=== PATIENT | female | born 1980 | race Caucasian/White ===

== ENCOUNTER 2019-01-21 10:18 | Emergency (ER) | payer OTHER ==
[2019-01-21] MEDS ORDERED: hydrOXYzine PAMOATE 25 MG CAPSULE (FP) PO ONE (10:34)
--- NOTE | 2019-01-21 10:34 | PDOC ---
History of Present Illness - General Chief Complaint: Psychiatric Stated Complaint: FEELING ANXIOUS Time Seen by Provider: 01/21/19 10:33 - History of Present Illness Initial Comments: Chief complaint: Anxiety History of present illness: Patient complains of feeling very anxious today. She feels she is going to . She has had panic attacks in the past, had been taking anti-anxiety medication but stopped. Time frame is uncertain. Symptoms this time are more severe. There appeared to be no obvious precipitating factors , though her parents think that she is worried about seeing some people she does not like at a family gathering tomorrow. There is no chest pain or shortness of breath, and she denies suicidal or homicidal ideations. She has no primary physician, although she has seemed psychologist recently, she is not forthcoming about the details or time of recent visit. Review of systems: No chest pain, shortness of breath, visual or focal neurologic symptoms, unsteadiness of gait, fever/chills, recent URI, sore throat , cough, abdominal pain, nausea, vomiting, diarrhea. She does admit that she has no appetite and that she has been sleeping poorly. Past medical history: Treated for depression many years ago but never hospitalized. Periodic panic attacks in the past, anxiety. No significant medical or surgical illness according to herself, her family. Social history: Lives with her and 2 children, and according to her parents they have a good relationship. She has been conscientious about taking care of her children and they are in good health. There are no Known conflicts with her , whom her father states is a "good man". Patient denies the use of tobacco alcohol or drugs. This was substantiated by both her brother and parents, who are in attendance today. Family history: Reviewed and noncontributory including early coronary artery disease, metabolic disease including diabetes, cancer, and psychiatric/ neurological disease. Physical exam: Anxious appearing female stating that she feels she is going to . No other specific complaints. Well-developed well-nourished. Limited cooperation. Afebrile, vital signs normal PERRLA 4 mm, fundi benign with sharp disc margins, good central venous pulsations, no hemorrhages or exudates or other funduscopic abnormalities. ENT clear Neck supple without bruit mass or nodes Chest clear CV regular without murmur rub or gallop pulses full and symmetric no JVD or edema no bruits Abdomen benign Neurological C2 to 12 intact. Strength full and symmetric. No focal sensory or motor deficits. Gait stable and unimpaired Impression: Panic attack, anxiety, history of depression, no history of suicidal ideations, homicidal ideations, or attempts to hurt herself or others. Plan: Sedation. Phone call was placed to Dr. Clarke who is on-call for psychiatry. Case was thoroughly discussed. He recommended administration of Ativan and if no improvement will be able to see the patient this evening at 6 PM. Preliminary labs and drug screen are pending. Past History - Past Medical History Allergies/Adverse Reactions: Allergies No Known Allergies Allergy (Verified 01/21/19 10:19) Home Medications: Ambulatory Orders LORazepam [Ativan] 1 mg PO TID #10 tablet MDD 3 01/21/19 Surgical History: Yes: No Surgical History - Social History Smoking History: No Smoking Status: Never smoked Number of Cigarettes Per Day: 0 Cigars Per Day: 0 Alcohol Use: none Drug Use: none Plan - Progress Note Progress Note: 01/21/19 15:09 Patient was considerably more calm after medication. Physical exam remained normal. She did not seem suicidal or in any danger to herself or others. It was arranged with her parents and brother that she should be closely observed until follow-up with psychiatrist. Arrangements were made with to see patient tomorrow. Continue Ativan. Return to ER if condition is worse. - Order(s) Order(s): Orders Medication Instructions Recorded Unobtainable 01/21/19 - Laboratory CBC & Chemistry Diagram: 01/21/19 11:50 01/21/19 11:50 *DC/Admit/Observation/Transfer Diagnosis at time of Disposition: Anxiety - Discharge Dispostion Disposition: HOME Condition at time of disposition: Improved Decision to Admit order: No - Prescriptions Prescriptions: LORazepam [Ativan] 1 mg PO TID #10 tablet MDD 3 - Referrals Referrals: Erasmo Clarke MD [Staff Physician] - 24 hours - Patient Instructions Printed Discharge Instructions: DI for Anxiety -- Adult Additional Instructions: A family member who is a reassuring presence should remain with you at all times until you see a specialist tomorrow Continue medication as directed Return to hospital if worse. - Post Discharge Activity
[2019-01-21 10:41] VITALS: TEMP 98.4; BMI 23.6
[2019-01-21] MEDS ORDERED: hydrOXYzine HCL 25 MG TABLET (FP) PO ONE (10:42)
[2019-01-21 12:08] LABS: BASO % 0.2 % (0-2.0); EOS % 0.1 % (0-4.5); HEMATOCRIT 32.7 % (32.4-45.2); HEMOGLOBIN 10.9 GM/dl (10.7-15.3); LYMPH % 14.9 % (8-40); MCH 29.3 pg (25.7-33.7); MCHC 33.4 g/dl (32.0-36.0); MEAN CELL VOLUME 87.9 fl (80-96); MEAN PLT VOLUME 8.9 fl (7.5-11.1); MONO % 4.7 % (3.8-10.2); NEUT % 80.1 % (42.8-82.8); PLATELET COUNT 245 K/MM3 (134-434); RBC 3.72 M/mm3 (3.60-5.2); RDW 12.4 % (11.6-15.6); WHITE BLOOD COUNT 6.2 K/mm3 (4.0-10.8)
[2019-01-21 12:25] LABS: BILIRUBIN,TOTAL 0.6 mg/dl (0.2-1); CALCIUM 8.7 mg/dl (8.5-10); CREATININE 0.8 mg/dl (0.55-1.3); POTASSIUM 3.5 mmol/L (3.5-5.1); TOT PROT 7.1 g/dl (6.4-8.2)
[2019-01-21 12:53] LABS: COCAINE, UR NEGATIVE ng/ml (CUTOFF=300); METHADONE, UR NEGATIVE ng/ml (CUTOFF=300); OPIATES, URI NEGATIVE ng/ml (CUTOFF=300); PHENCYCLIDINE,URINE NEGATIVE ng/ml (CUTOFF=25); URINE AMPHETAMINES NEGATIVE ng/ml (CUTOFF=500); URINE BARBITURATES NEGATIVE ng/ml (CUTOFF=200); URINE BENZODIAZEPINES NEGATIVE ng/ml (CUTOFF=200)
[2019-01-21] MEDS ORDERED: LORazepam 1 MG TABLET PO ONE (12:54)
[2019-01-21] MEDS ORDERED: LORazepam 0.5 MG TABLET ONE (12:56)
[2019-01-21 13:01] VITALS: BP 104/66; PULSE 85
== END 2019-01-21 14:54 | disposition home or self-care (01) ==
LOC: FER 10:18
DX: F41.9 Anxiety disorder, unspecified (principal)
CPT/HCPCS: 36415; 80053; 80307; 84703; 85025; 99281-25